=== PATIENT | female | born 1990 | race Caucasian/White ===

== ENCOUNTER 2016-07-23 18:20 | Emergency (ER) | payer OTHER ==
--- NOTE | 2016-07-23 19:41 | DIAGNOSTIC IMAGING REPORT ---
PROCEDURE: US ABDOMEN ULTRASOUND-LIMITED INDICATION: RUQ PAIN TECHNIQUE: Alfred scale and color Doppler sonographic images of the abdomen were obtained. COMPARISON: None. FINDINGS: 1.5 cm mobile gallstone. There is no gallbladder wall thickening or pericholecystic fluid. Normal CBD, 4 mm. Negative Zamudio's sign. Liver measures at 18.6 cm with increased echogenicity. Pancreas normal as visualized. Aorta and IVC are patent. Normal hepatopetal flow. Right kidney measures 10 cm. IMPRESSION: 1. Cholelithiasis. 2. Hepatic steatosis versus intrinsic liver disease.
--- NOTE | 2016-07-23 20:23 | ED ORDER SUMMARY ---
..... Patient: KAREN JOHNSON OrderSheet [facility] VisitID: [id number] [address] [place] [address] 26y, F Registration Date/Time: 07/23/2016 ORDER SHEET Weight: 100.6 kg (stated) Allergies: None GENERAL ORDERS: US Abdomen Limited (No) Urgent (18:51 07/23/2016 EKoroleva P.A.-C) (Ack 18:52 NHouse ER Tech1) (20:34 MCampbell) CBC w Diff Urgent (18:51 07/23/2016 EKoroleva P.A.-C) (Ack 18:52 NHouse ER Tech1) (23:22 KPage-Kuchan R.N.) CMP Urgent (18:51 07/23/2016 EKoroleva P.A.-C) (Ack 18:52 NHouse ER Tech1) (23:22 KPage-Kuchan R.N.) UA-Culture if indicated Urgent (18:51 07/23/2016 EKoroleva P.A.-C) (Ack 18:52 NHouse ER Tech1) (23:22 KPage-Kuchan R.N.) Lipase Urgent (18:51 07/23/2016 EKoroleva P.A.-C) (Ack 18:52 NHouse ER Tech1) (23:22 KPage-Kuchan R.N.) Urine Urgent (18:51 07/23/2016 EKoroleva P.A.-C) (Ack 18:52 NHouse ER Tech1) (23:22 KPage-Kuchan R.N.) UA-Culture if indicated Urgent (19:50 07/23/2016 EKoroleva P.A.-C) (Ack 19:51 AMcQuoid ER Tech1) (23:22 KPage-Kuchan R.N.) MEDICATION ORDERS: IV FLUIDS: ORDER SHEET NOTES: [Electronically signed by Magalys LuongAOksana-Cinthia (21:12 07/23/2016)] [Electronically signed by Elvia Arzola ROksanaNOksana (23:22 07/23/2016)] [Electronically locked/signed by Elvia Arzola R.N. (23:22 07/23/2016)]
--- NOTE | 2016-07-23 20:23 | ED NURSING NOTES ---
Clinical Report - Nurses [facility] [address] [place] [address] 07/23/2016 18:22 Patient: KAREN JOHNSON TRIAGE Triage time 18:42 Jul 23 2016. Chief Complaint: ABDOMINAL PAIN and (pt reports having abd mid epigastric and back pain , was at Prov 2 weeks ago for same, didn't get past the waiting room and lwbs due to wait time. friday pt reports pain came back). Alert. No acute distress. SEPSIS SCREEN: Sepsis Screen. Negative (no infection suspected/documented). --18:50 Elvia Arzola R.N. 18:42 07/23/16. BP: 124/65 taken on the left arm, while lying. HR: 61. RR: 17. O2 saturation: 100%. Temp: 98.2 F. Pain level now: 10/10. --18:50 Elvia Arzola R.N. Weight: 100.6 kg stated. Height/Length: 65 inches Per Patient. BMI: 37. --18:45 Elvia Arzola R.N. Medications None. --18:44 Elvia Arzola R.N. Medication/allergy information source: the patient. --18:50 Elvia Arzola R.N. Allergies None. --18:44 Elvia Arzola R.N. History Arrived by private vehicle. Historian: patient. Accompanied by friend. The patient has had nausea and vomiting. 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 PAST MEDICAL HX: Immunizations: up-to-date. Last normal menstrual period- on period now. SOCIAL HX: Heavy tobacco smoker (cigarette)- 1 pack per day. No alcohol use or drug use. No infectious disease exposure. No known contact with a sick individual. ABUSE ASSESSMENT: No report of abuse. SELF HARM ASSESSMENT: A self harm assessment was performed. The patient answered "no" to the question "Do you have thoughts of harming or killing yourself?". FALL RISK ASSESSMENT: Fall risk assessment completed. No fall risk identified. NUTRITIONAL RISK ASSESSMENT: The nutritional risk assessment revealed no deficiencies. FUNCTIONAL ASSESSMENT: Functional assessment: no impairments noted. LEARNING NEEDS ASSESSMENT: The learning needs assessment revealed no barriers. SKIN INTEGRITY ASSESSMENT: Skin integrity risk assessment completed. No skin integrity risk identified. --18:50 Elvia Arzola R.N. PROBLEMS: no known problems. ADDITIONAL SURGERIES: no known surgeries. Interventions ID band on patient. --18:50 Elvia Arzola R.N. PHYSICAL ASSESSMENT Ambulatory to room. Patient gowned. GENERAL / NEURO / PSYCH: Alert. Oriented X 4. Appears in no acute distress. HEENT: Mucous membranes are pink. RESPIRATORY: Respirations not labored. Breath sounds within normal limits. CVS: Capillary refill less than 2 seconds. GI / : Abdomen soft. SKIN: Skin is warm and dry. --18:50 Elvia Arzola R.N. NURSING PROGRESS NOTES Monitoring of patient in place. Patient gowned. Head of bed elevated. Reassurance given. Patient identifiers checked. Call light placed in reach. Side rails up x 1. Bed placed in lowest position. Brakes of bed on. --18:50 Elvia Arzola R.N. Checked patient name and birthdate. Blood samples drawn from the right forearm with Vacutainer 22g by nurse per protocol ; labeled in presence of the patient and sent to lab: rainbow set. Checked patient name and birthdate: patient confirmed. Instructions provided to collect clean catch urine and patient verbalized understanding. Clean catch urine collected; sample sent to lab for urinalysis. Specimen labeled in the presence of the patient. --19:03 Elvia Arzola R.N. In/out catheterization. During procedure hand hygiene observed and sterile equipment and aseptic technique used. Return of yellow-colored clear urine. She tolerated procedure well. Urine collected. --19:21 Elvia Arzloa R.N. ( US at bedside). --19:23 Elvai Arzola R.N. DISPOSITION / DISCHARGE No learning barriers present. Discharge instructions provided and reviewed with the patient. Reviewed medication(s) side effects and course information. Prescription(s) given to the patient. Patient verbalized understanding. Written instructions provided in Kazakh. The patient was discharged by the nurse practitioner. She was discharged home and accompanied by nitroglycerin nitrator operator batch. She left the Emergency Department ambulatory and via private vehicle. --20:39 Elvia Arzola R.N. 20:37 07/23/16. BP: 119/64. HR: 66. RR: 15. O2 saturation: 100%. Temp: deferred. Pain level now: 08/10. --20:39 Elvia Arzola R.N. Locked/Released at 07/23/2016 23:22 by Elvia Arzola R.N.
--- NOTE | 2016-07-23 20:23 | ED CLINICAL REPORT ---
Clinical Report - Physicians/Mid Levels [facility] [address] [place] [address] 07/23/2016 18:22 Patient: KAREN JOHNSON Time Seen: 19:00 Jul 23 2016. Arrived- By private vehicle. Historian- patient. HISTORY OF PRESENT ILLNESS Chief Complaint: ABDOMINAL PAIN. It is described as "pain" and it is described as located in the upper abdomen. 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 The patient has had nausea. No vomiting or diarrhea. (Patient with abdominal pain over the last 2 weeks. Patient with no diarrhea. Abdominal pain worsens with fatty foods. Denies history of similar. Patient currently on her menses. Patient denies any shortness of breath. Denies any cough.). REVIEW OF SYSTEMS No constipation, hematemesis, difficulty with urination, pain with urination or urinary frequency. No headache or chest pain. All systems otherwise negative, except as recorded above. SOCIAL HISTORY Smoker- current status unknown. No alcohol use or drug use. ADDITIONAL NOTES The nursing notes have been reviewed. PHYSICAL EXAM Vital Signs: 07/23/2016 18:42 BP: 124/65. HR: 61. RR: 17. O2 saturation: 100%. Temp: 98.2 F. Pain level now: 8/10. Appearance: Alert. ENT: Nose normal. Neck: Normal inspection. CVS: Normal heart rate and rhythm. Heart sounds normal. Respiratory: No respiratory distress. Breath sounds normal. No decreased air movement. Abdomen: Nontender. Mild tenderness in the epigastric area. Back: Normal inspection. No CVA tenderness. Skin: Skin warm. Neuro: Oriented X 3. LABS, X-RAYS, AND EKG Laboratory Tests: UA-Culture if indicated: (TIAGO: 07/23/2016 19:13) ( MsgRcvd 07/23/2016 20:06) IP Test Result Flag Units (Reference) URINE COLOR YELLOW URINE APPEARANCE CLEAR URINE GLUCOSE NEGATIVE (NEGATIVE) URINE BILIRUBIN NEGATIVE (NEGATIVE) URINE KETONE NEGATIVE (NEGATIVE) URINE SPECIFIC GRAVITY 1.020 (1.010-1.030) URINE PH 7.5 (5.0-8.0) URINE PROTEIN NEGATIVE (NEGATIVE) URINE UROBILINOGEN 0.2 EU/dL (0.2-1.0) URINE NITRITE NEGATIVE (NEGATIVE) URINE BLOOD 2+ (NEGATIVE) URINE LEUK ESTERASE NEGATIVE (NEGATIVE) UA-Culture if indicated: (TIAGO: 07/23/2016 18:50) ( [facility] 07/23/2016 20:00) Final results Test Result Flag Units (Reference) URINE COLOR RED URINE APPEARANCE SL CLOUDY URINE GLUCOSE NEGATIVE (NEGATIVE) URINE BILIRUBIN NEGATIVE (NEGATIVE) URINE KETONE NEGATIVE (NEGATIVE) URINE SPECIFIC GRAVITY 1.020 (1.010-1.030) URINE PH 7.0 (5.0-8.0) URINE PROTEIN NEGATIVE (NEGATIVE) URINE UROBILINOGEN 0.2 EU/dL (0.2-1.0) URINE NITRITE NEGATIVE (NEGATIVE) URINE BLOOD 3+ (NEGATIVE) URINE LEUK ESTERASE NEGATIVE (NEGATIVE) URINE RBC >100 (TNTC) rbc/hpf (0-1) URINE WBC 1-3 wbc/hpf (0-1) URINE EPITHELIAL CELLS 0-1 EPI/hpf (0-5) URINE BACTERIA TRACE (<1+) (NONE SEEN) URINE COMMENT CULT NOT INDICATED URINE CULTURES ARE SET-UP BASED ON THE FOLLOWING CRITERIA:POSITIVE NITRITEPOSITIVE LEUKOCYTE ESTERASEGREATER THAN 10 WHITE BLOOD CELLSMODERATE (2+) OR GREATER BACTERIA Urine: (TIAGO: 07/23/2016 18:50) ( [facility] 07/23/2016 19:41) Final results Test Result Flag Units (Reference) URINE NEGATIVE CBC w Diff: (TIAGO: 07/23/2016 18:50) ( [facility] 07/23/2016 19:31) Final results Test Result Flag Units (Reference) WHITE BLOOD COUNT 12.3 H K/uL (4.5-11.5) RED BLOOD COUNT 5.34 H M/uL (4.00-5.20) HEMOGLOBIN 12.8 gm/dL (12.0-16.0) HEMATOCRIT 39.5 % (36.0-46.0) MEAN CELL VOLUME 74 L fL (80-100) MEAN CORPUSCULAR HGB 24 L pg (26-34) MEAN CORPUSCULAR HGB CONC 32 g/dL (31-37) RED CELL DISTRIBUTION WIDTH 15.2 H % (11.6-14.8) PLATELET COUNT 424 H K/uL (150-400) NEUTROPHIL % 66.2 % (50-75) LYMPH % 24.2 L % (25-40) MONO % 5.6 % (3-14) EOSINOPHIL % 3.7 % (0-4) BASOPHIL % 0.3 % (0-2) CMP: (TIAGO: 07/23/2016 18:50) ( MsgRcvd 07/23/2016 19:45) Final results Test Result Flag Units (Reference) GLUCOSE 108 mg/dL (70-110) BUN 10 mg/dL (7-18) CREATININE 0.8 mg/dL (0.6-1.3) Estimated GFR >60 mL/min Estimated GFR- >60 mL/min Note: Persistent reduction over 3 months in eGFR<60 mL/min/1.73 m2 defines CKD. Patients with eGFR values>=60 mL/min/1.73 m2 may also have CKD if evidence ofpersistent proteinuria. Additional information may be foundat www.kidney.org. SODIUM 139 mmol/L (136-145) POTASSIUM 3.4 L mmol/L (3.5-5.1) CHLORIDE 104 mmol/L (98-107) CARBON DIOXIDE 28 mmol/L (21-32) CALCIUM 8.6 mg/dL (8.5-10.1) TOTAL PROTEIN 8.3 H g/dL (6.4-8.2) ALBUMIN 3.5 g/dL (3.3-5.0) BILIRUBIN, TOTAL 0.2 mg/dL (0.0-1.0) ALKALINE PHOSPHATASE 73 U/L (46-116) AST (SGOT) 33 U/L (15-37) ALT (SGPT) 56 U/L (12-78) LIPASE 195 U/L (73-393) . Note - Tests: (us abd: IMPRESSION: 1. Cholelithiasis. 2. Hepatic steatosis versus intrinsic liver disease. Electronically Final signed by:Alexis Pearson MD 07/23/2016 7:41:32 PM). PROGRESS AND PROCEDURES Course of Care: During the time in the ED, the following DDX were considered: acute surgical abdomen, hemodynamic or metabolic instability, dehydration, gastroenteritis-viral, food borne, or bacterial, food intolerance, irritable or inflammatory bowel, infection, sepsis. Patient was times of cholelithiasis, with no signs of acute cholecystitis. Stable. Does not warrant any acute immediate intervention. Patient informed to stay away from fatty foods and fried foods, 12 with surgeon as needed. 07/23/2016 20:37 BP: 119/64. HR: 66. RR: 15. O2 saturation: 100%. Pain level now: 610. Patient is stable. Symptoms better. Patient/family counseled. Disposition: Discharged. Condition: good. CLINICAL IMPRESSION Biliary colic with a single gallstone. No cholecystitis. INSTRUCTIONS Drink plenty of fluids. Avoid alcohol. Avoid fatty and fried/greasy foods. Warnings: Further evaluation is necessary. Prescription Medications: Hydrocodone/APAP 5mg / 325mg: take 1 orally every 6 hours as needed for pain. Dispense twelve (12). No refill. Zofran (orally disintegrating tablets) 4 mg: take 1 orally every 6 hours for 4 days as needed for nausea and vomiting. Dispense ten (10). No refill. Substitution is permissible. Understanding of the discharge instructions verbalized. Follow-up with: Jaime eKith MD, General Surgeon, , [facility], [address] [place] [address] Follow up. Call for the next available appointment. (Electronically signed by Magalys Luong P.A.-C 07/23/2016 21:12)
--- NOTE | 2016-07-23 20:23 | ED CLINICAL REPORT ---
Clinical Report - Physicians/Mid Levels [facility] [address] [place] [address] 07/23/2016 18:22 Patient: KAREN JOHNSON Time Seen: 19:00 Jul 23 2016. Arrived- By private vehicle. Historian- patient. HISTORY OF PRESENT ILLNESS Chief Complaint: ABDOMINAL PAIN. It is described as "pain" and it is described as located in the upper abdomen. 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 The patient has had nausea. No vomiting or diarrhea. (Patient with abdominal pain over the last 2 weeks. Patient with no diarrhea. Abdominal pain worsens with fatty foods. Denies history of similar. Patient currently on her menses. Patient denies any shortness of breath. Denies any cough.). REVIEW OF SYSTEMS No constipation, hematemesis, difficulty with urination, pain with urination or urinary frequency. No headache or chest pain. All systems otherwise negative, except as recorded above. SOCIAL HISTORY Smoker- current status unknown. No alcohol use or drug use. ADDITIONAL NOTES The nursing notes have been reviewed. PHYSICAL EXAM Vital Signs: 07/23/2016 18:42 BP: 124/65. HR: 61. RR: 17. O2 saturation: 100%. Temp: 98.2 F. Pain level now: 8/10. Appearance: Alert. ENT: Nose normal. Neck: Normal inspection. CVS: Normal heart rate and rhythm. Heart sounds normal. Respiratory: No respiratory distress. Breath sounds normal. No decreased air movement. Abdomen: Nontender. Mild tenderness in the epigastric area. Back: Normal inspection. No CVA tenderness. Skin: Skin warm. Neuro: Oriented X 3. LABS, X-RAYS, AND EKG Laboratory Tests: UA-Culture if indicated: (TIAGO: 07/23/2016 19:13) ( MsgRcvd 07/23/2016 20:06) IP Test Result Flag Units (Reference) URINE COLOR YELLOW URINE APPEARANCE CLEAR URINE GLUCOSE NEGATIVE (NEGATIVE) URINE BILIRUBIN NEGATIVE (NEGATIVE) URINE KETONE NEGATIVE (NEGATIVE) URINE SPECIFIC GRAVITY 1.020 (1.010-1.030) URINE PH 7.5 (5.0-8.0) URINE PROTEIN NEGATIVE (NEGATIVE) URINE UROBILINOGEN 0.2 EU/dL (0.2-1.0) URINE NITRITE NEGATIVE (NEGATIVE) URINE BLOOD 2+ (NEGATIVE) URINE LEUK ESTERASE NEGATIVE (NEGATIVE) UA-Culture if indicated: (TIAGO: 07/23/2016 18:50) ( [facility] 07/23/2016 20:00) Final results Test Result Flag Units (Reference) URINE COLOR RED URINE APPEARANCE SL CLOUDY URINE GLUCOSE NEGATIVE (NEGATIVE) URINE BILIRUBIN NEGATIVE (NEGATIVE) URINE KETONE NEGATIVE (NEGATIVE) URINE SPECIFIC GRAVITY 1.020 (1.010-1.030) URINE PH 7.0 (5.0-8.0) URINE PROTEIN NEGATIVE (NEGATIVE) URINE UROBILINOGEN 0.2 EU/dL (0.2-1.0) URINE NITRITE NEGATIVE (NEGATIVE) URINE BLOOD 3+ (NEGATIVE) URINE LEUK ESTERASE NEGATIVE (NEGATIVE) URINE RBC >100 (TNTC) rbc/hpf (0-1) URINE WBC 1-3 wbc/hpf (0-1) URINE EPITHELIAL CELLS 0-1 EPI/hpf (0-5) URINE BACTERIA TRACE (<1+) (NONE SEEN) URINE COMMENT CULT NOT INDICATED URINE CULTURES ARE SET-UP BASED ON THE FOLLOWING CRITERIA:POSITIVE NITRITEPOSITIVE LEUKOCYTE ESTERASEGREATER THAN 10 WHITE BLOOD CELLSMODERATE (2+) OR GREATER BACTERIA Urine: (TIAGO: 07/23/2016 18:50) ( [facility] 07/23/2016 19:41) Final results Test Result Flag Units (Reference) URINE NEGATIVE CBC w Diff: (TIAGO: 07/23/2016 18:50) ( [facility] 07/23/2016 19:31) Final results Test Result Flag Units (Reference) WHITE BLOOD COUNT 12.3 H K/uL (4.5-11.5) RED BLOOD COUNT 5.34 H M/uL (4.00-5.20) HEMOGLOBIN 12.8 gm/dL (12.0-16.0) HEMATOCRIT 39.5 % (36.0-46.0) MEAN CELL VOLUME 74 L fL (80-100) MEAN CORPUSCULAR HGB 24 L pg (26-34) MEAN CORPUSCULAR HGB CONC 32 g/dL (31-37) RED CELL DISTRIBUTION WIDTH 15.2 H % (11.6-14.8) PLATELET COUNT 424 H K/uL (150-400) NEUTROPHIL % 66.2 % (50-75) LYMPH % 24.2 L % (25-40) MONO % 5.6 % (3-14) EOSINOPHIL % 3.7 % (0-4) BASOPHIL % 0.3 % (0-2) CMP: (TIAGO: 07/23/2016 18:50) ( MsgRcvd 07/23/2016 19:45) Final results Test Result Flag Units (Reference) GLUCOSE 108 mg/dL (70-110) BUN 10 mg/dL (7-18) CREATININE 0.8 mg/dL (0.6-1.3) Estimated GFR >60 mL/min Estimated GFR- >60 mL/min Note: Persistent reduction over 3 months in eGFR<60 mL/min/1.73 m2 defines CKD. Patients with eGFR values>=60 mL/min/1.73 m2 may also have CKD if evidence ofpersistent proteinuria. Additional information may be foundat www.kidney.org. SODIUM 139 mmol/L (136-145) POTASSIUM 3.4 L mmol/L (3.5-5.1) CHLORIDE 104 mmol/L (98-107) CARBON DIOXIDE 28 mmol/L (21-32) CALCIUM 8.6 mg/dL (8.5-10.1) TOTAL PROTEIN 8.3 H g/dL (6.4-8.2) ALBUMIN 3.5 g/dL (3.3-5.0) BILIRUBIN, TOTAL 0.2 mg/dL (0.0-1.0) ALKALINE PHOSPHATASE 73 U/L (46-116) AST (SGOT) 33 U/L (15-37) ALT (SGPT) 56 U/L (12-78) LIPASE 195 U/L (73-393) . Note - Tests: (us abd: IMPRESSION: 1. Cholelithiasis. 2. Hepatic steatosis versus intrinsic liver disease. Electronically Final signed by:Alexis Pearson MD 07/23/2016 7:41:32 PM). PROGRESS AND PROCEDURES Course of Care: During the time in the ED, the following DDX were considered: acute surgical abdomen, hemodynamic or metabolic instability, dehydration, gastroenteritis-viral, food borne, or bacterial, food intolerance, irritable or inflammatory bowel, infection, sepsis. Patient was times of cholelithiasis, with no signs of acute cholecystitis. Stable. Does not warrant any acute immediate intervention. Patient informed to stay away from fatty foods and fried foods, 12 with surgeon as needed. 07/23/2016 20:37 BP: 119/64. HR: 66. RR: 15. O2 saturation: 100%. Pain level now: 610. Patient is stable. Symptoms better. Patient/family counseled. Disposition: Discharged. Condition: good. CLINICAL IMPRESSION Biliary colic with a single gallstone. No cholecystitis. INSTRUCTIONS Drink plenty of fluids. Avoid alcohol. Avoid fatty and fried/greasy foods. Warnings: Further evaluation is necessary. Prescription Medications: Hydrocodone/APAP 5mg / 325mg: take 1 orally every 6 hours as needed for pain. Dispense twelve (12). No refill. Zofran (orally disintegrating tablets) 4 mg: take 1 orally every 6 hours for 4 days as needed for nausea and vomiting. Dispense ten (10). No refill. Substitution is permissible. Understanding of the discharge instructions verbalized. Follow-up with: Jaime Keith MD, General Surgeon, , [facility], [address] [place] [address] Follow up. Call for the next available appointment. (Electronically signed by Magalys Luong P.A.-C 07/23/2016 21:12)
--- NOTE | 2016-07-23 20:23 | ED NURSING NOTES ---
Clinical Report - Nurses [facility] [address] [place] [address] 07/23/2016 18:22 Patient: KAREN JOHNSON TRIAGE Triage time 18:42 Jul 23 2016. Chief Complaint: ABDOMINAL PAIN and (pt reports having abd mid epigastric and back pain , was at Prov 2 weeks ago for same, didn't get past the waiting room and lwbs due to wait time. friday pt reports pain came back). Alert. No acute distress. SEPSIS SCREEN: Sepsis Screen. Negative (no infection suspected/documented). --18:50 Elvia Arzola R.N. 18:42 07/23/16. BP: 124/65 taken on the left arm, while lying. HR: 61. RR: 17. O2 saturation: 100%. Temp: 98.2 F. Pain level now: 10/10. --18:50 Elvia Arzola R.N. Weight: 100.6 kg stated. Height/Length: 65 inches Per Patient. BMI: 37. --18:45 Elvia Arzola R.N. Medications None. --18:44 Elvia Arzola R.N. Medication/allergy information source: the patient. --18:50 Elvia Arzola R.N. Allergies None. --18:44 Elvia Arzola R.N. History Arrived by private vehicle. Historian: patient. Accompanied by friend. The patient has had nausea and vomiting. 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 PAST MEDICAL HX: Immunizations: up-to-date. Last normal menstrual period- on period now. SOCIAL HX: Heavy tobacco smoker (cigarette)- 1 pack per day. No alcohol use or drug use. No infectious disease exposure. No known contact with a sick individual. ABUSE ASSESSMENT: No report of abuse. SELF HARM ASSESSMENT: A self harm assessment was performed. The patient answered "no" to the question "Do you have thoughts of harming or killing yourself?". FALL RISK ASSESSMENT: Fall risk assessment completed. No fall risk identified. NUTRITIONAL RISK ASSESSMENT: The nutritional risk assessment revealed no deficiencies. FUNCTIONAL ASSESSMENT: Functional assessment: no impairments noted. LEARNING NEEDS ASSESSMENT: The learning needs assessment revealed no barriers. SKIN INTEGRITY ASSESSMENT: Skin integrity risk assessment completed. No skin integrity risk identified. --18:50 Elvia Arzola R.N. PROBLEMS: no known problems. ADDITIONAL SURGERIES: no known surgeries. Interventions ID band on patient. --18:50 Elvia Arzola R.N. PHYSICAL ASSESSMENT Ambulatory to room. Patient gowned. GENERAL / NEURO / PSYCH: Alert. Oriented X 4. Appears in no acute distress. HEENT: Mucous membranes are pink. RESPIRATORY: Respirations not labored. Breath sounds within normal limits. CVS: Capillary refill less than 2 seconds. GI / : Abdomen soft. SKIN: Skin is warm and dry. --18:50 Elvia Arzola R.N. NURSING PROGRESS NOTES Monitoring of patient in place. Patient gowned. Head of bed elevated. Reassurance given. Patient identifiers checked. Call light placed in reach. Side rails up x 1. Bed placed in lowest position. Brakes of bed on. --18:50 Elvia Arzola R.N. Checked patient name and birthdate. Blood samples drawn from the right forearm with Vacutainer 22g by nurse per protocol ; labeled in presence of the patient and sent to lab: rainbow set. Checked patient name and birthdate: patient confirmed. Instructions provided to collect clean catch urine and patient verbalized understanding. Clean catch urine collected; sample sent to lab for urinalysis. Specimen labeled in the presence of the patient. --19:03 Elvia Arzola R.N. In/out catheterization. During procedure hand hygiene observed and sterile equipment and aseptic technique used. Return of yellow-colored clear urine. She tolerated procedure well. Urine collected. --19:21 Elvia Arzola R.N. ( US at bedside). --19:23 Elvia Arzola R.N. DISPOSITION / DISCHARGE No learning barriers present. Discharge instructions provided and reviewed with the patient. Reviewed medication(s) side effects and course information. Prescription(s) given to the patient. Patient verbalized understanding. Written instructions provided in Divehi. The patient was discharged by the nurse practitioner. She was discharged home and accompanied by alteration tailor apprentice. She left the Emergency Department ambulatory and via private vehicle. --20:39 Elvia Arzola R.N. 20:37 07/23/16. BP: 119/64. HR: 66. RR: 15. O2 saturation: 100%. Temp: deferred. Pain level now: 08/10. --20:39 Elvia Arzola R.N. Locked/Released at 07/23/2016 23:22 by Elvia Arzola R.N.
--- NOTE | 2016-07-23 20:23 | ED ORDER SUMMARY ---
..... Patient: KAREN JOHNSON OrderSheet [facility] VisitID: [id number] [address] [place] [address] 26y, F Registration Date/Time: 07/23/2016 ORDER SHEET Weight: 100.6 kg (stated) Allergies: None GENERAL ORDERS: US Abdomen Limited (No) Urgent (18:51 07/23/2016 EKoroleva P.A.-C) (Ack 18:52 NHouse ER Tech1) (20:34 MCampbell) CBC w Diff Urgent (18:51 07/23/2016 EKoroleva P.A.-C) (Ack 18:52 NHouse ER Tech1) (23:22 KPage-Kuchan R.N.) CMP Urgent (18:51 07/23/2016 EKoroleva P.A.-C) (Ack 18:52 NHouse ER Tech1) (23:22 KPage-Kuchan R.N.) UA-Culture if indicated Urgent (18:51 07/23/2016 EKoroleva P.A.-C) (Ack 18:52 NHouse ER Tech1) (23:22 KPage-Kuchan R.N.) Lipase Urgent (18:51 07/23/2016 EKoroleva P.A.-C) (Ack 18:52 NHouse ER Tech1) (23:22 KPage-Kuchan R.N.) Urine Urgent (18:51 07/23/2016 EKoroleva P.A.-C) (Ack 18:52 NHouse ER Tech1) (23:22 KPage-Kuchan R.N.) UA-Culture if indicated Urgent (19:50 07/23/2016 EKoroleva P.A.-C) (Ack 19:51 AMcQuoid ER Tech1) (23:22 KPage-Kuchan R.N.) MEDICATION ORDERS: IV FLUIDS: ORDER SHEET NOTES: [Electronically signed by Magalys LuongAOksana-Cinthia (21:12 07/23/2016)] [Electronically signed by Elvia Arzola ROksanaNOksana (23:22 07/23/2016)] [Electronically locked/signed by Elvia Arzola R.N. (23:22 07/23/2016)]
--- NOTE | 2016-07-23 23:22 | ED MAR SUMMARY ---
..... Medication Administration Record [facility] [address] [place], [place] [id number] Patient: KAREN JOHNSON Visit ID: [id number] 26y, F Weight: 100.6 kg Height/Length: 65 in BMI: 37 ALLERGIES: None
--- NOTE | 2016-07-23 23:22 | ED MED RECONCILIATION SUMMARY ---
Patient: KAREN JOHNSON Medication Reconciliation Report [facility] VisitID: [id number] [address] [place] [address] 26y, F Registration Date/Time: 07/23/2016 Weight: 100.6 kg Height/Length: 65 in. BMI: 37.0 ALLERGIES: None The patient's Home Medications are listed below: NONE. The source(s) of the original Home Medication information: patient The following Medications were given to the patient in the Emergency Department: None. The following Medications were prescribed to the patient: Hydrocodone/APAP 5mg / 325mg: take 1 orally every 6 hours as needed for pain. Dispense twelve (12). No refill. -- Magalys Luong, P.A.Nasim Zofran (orally disintegrating tablets) 4 mg: take 1 orally every 6 hours for 4 days as needed for nausea and vomiting. Dispense ten (10). No refill. Substitution is permissible. -- Magalys Luong P.AKrista
--- NOTE | 2016-07-23 23:22 | ED MED RECONCILIATION SUMMARY ---
Patient: KAREN JOHNSON Medication Reconciliation Report [facility] VisitID: [id number] [address] [place] [address] 26y, F Registration Date/Time: 07/23/2016 Weight: 100.6 kg Height/Length: 65 in. BMI: 37.0 ALLERGIES: None The patient's Home Medications are listed below: NONE. The source(s) of the original Home Medication information: patient The following Medications were given to the patient in the Emergency Department: None. The following Medications were prescribed to the patient: Hydrocodone/APAP 5mg / 325mg: take 1 orally every 6 hours as needed for pain. Dispense twelve (12). No refill. -- Magalys Luong, P.A.Nasim Zofran (orally disintegrating tablets) 4 mg: take 1 orally every 6 hours for 4 days as needed for nausea and vomiting. Dispense ten (10). No refill. Substitution is permissible. -- Magalys Luong P.AKrista
--- NOTE | 2016-07-23 23:22 | ED DISCHARGE INSTRUCTIONS ---
Patient: KAREN JOHNSON General Instructions [facility] VisitID: [id number] [address] [place], [place] [id number] 26y, F Registration Date/Time: 07/23/2016 Biliary colic with a single gallstone. No cholecystitis. INSTRUCTIONS Drink plenty of fluids. Avoid alcohol. Avoid fatty and fried/greasy foods. Warnings: Further evaluation is necessary. Prescription Medications: Hydrocodone/APAP 5mg / 325mg: take 1 orally every 6 hours as needed for pain. Dispense twelve (12). No refill. Zofran (orally disintegrating tablets) 4 mg: take 1 orally every 6 hours for 4 days as needed for nausea and vomiting. Dispense ten (10). No refill. Substitution is permissible. Understanding of the discharge instructions verbalized. Follow-up with: Jaime Keith MD, General Surgeon, , [facility], [address] [place] [address] Follow up. Call for the next available appointment. ADDITIONAL INFORMATION GallstonesWith Biliary Colic [Confirmed Dx] The abdominal pain that you have today is due to spasm of the gallbladder. The gallbladder is a small sac under the liver which stores and releases bile. Bile is a fluid that aids in the digestion of fat. A gallstone may form inside the gallbladder and block the flow of bile fluid. This causes mild to severe crampy pain in the mid or right upper abdomen with nausea and vomiting. Home Care: Rest in bed and follow a clear liquid diet until feeling better. If pain or nausea medicine was given to help with your symptoms, take these as directed. Fat in your diet makes the gallbladder contract and may cause increased pain. Therefore, avoid fat in your diet over the next two days and follow a low-fat diet after that. If you are overweight, a low-fat diet will also help you lose weight. Follow Up with your doctor. There is a 50% chance that you will have another episode of pain from your gallstones during the next 2 years. Removal of the gallbladder is the treatment of choice to prevent this. Schedule an appointment with your own doctor during the next week to discuss the treatment options. Get Prompt Medical Attention if any of the following occur: Pain gets worse or moves to the right lower abdomen Repeated vomiting Swelling of the abdomen Pain lasts over 6 hours Fever of 100.4F (38C) or higher, or as directed by your healthcare provider Weakness, dizziness or fainting Dark urine or light colored stools Yellow color of the skin or eyes Chest, arm, back, neck or jaw pain [place] Diet A bland diet is used for patients with an upset stomach. It consists of foods that are mild and easy to digest. It is better to eat small frequent meals rather than three large meals a day. BEVERAGES OK: Fruit juices, non-caffeinated teas and coffee, non-carbonated tomas AVOID: Carbonated beverage, caffeinated tea and coffee, all alcoholic beverages BREAD OK: Refined white, wheat or rye bread, eun or soda crackers, Carlyn toast, plain rolls, bagels AVOID: Whole-grain bread CEREAL OK: Refined cereals: cooked or ready to eat AVOID: Whole grain cereals and granola, or those containing bran, seeds or nuts DESSERTS OK: Peanut butter and all others except those to "avoid" AVOID: Chocolate, cocoa, coconut, popcorn, nuts, seeds, jam, marmalade FRUITS OK: Canned, cooked, frozen or fresh fruits without seeds or tough skin AVOID: Olives, skin and seeds of fruit MEATS OK: All fresh or preserved meat, fish and fowl AVOID: Any that are prepared with those spices to "avoid" CHEESE & EGGS OK: Eggs, cottage cheese, cream cheese, other cheeses AVOID: All cheeses made with those spices to "avoid" POTATOES & PASTA OK: Potato, rice, macaroni, noodles, spaghetti AVOID: None SOUPS OK: All soups without heavy seasoning AVOID: Soups made with those spices to "avoid" VEGETABLES OK: Canned, cooked, fresh or frozen mildly flavored vegetables without seeds, skins or coarse fiber AVOID: Vegetables prepared with those spices to "avoid"; skin and seeds of vegetables and those with coarse fiber SPICES OK: Salt, lemon and [place] shosh[place] juice, vinegar, all extracts, braeden, cinnamon, thyme, mace, allspice, paprika AVOID: Lynn powder, cloves, pepper, seed spices, garlic, gravy pickles, highly seasoned salad dressings Clear Liquid Diet Clear liquids are any liquid that you can see through as well as those that are very easy to digest. This is used while the body is recovering from irritation or infection of the stomach or intestinal tract. It may also be used before special procedures or surgery. This diet is to be used no more than three days. You may include the following items. Adults Adults should drink a total of 23 quarts of liquid per day. It may be easier to drink small frequent servings rather than a few large ones. Liquids can include: Fruit juices.Strained orange juice or lemonade (no pulp), apple, grape and cranberry juice, clear fruit drinks, sports drinks Beverages.Sport drinks, sodas, mineral water (plain or flavored), tea, black coffee, liquid gelatin (add twice the recommended amount of water) Soups.Clear broth, consomm, bouillon Desserts.Plain gelatin, popsicles, fruit juice bars Children Over 2 years old The following liquids are acceptable for children over age 2: Fruit juices.Strained orange juice or lemonade (no pulp), apple, grape and cranberry juice, clear fruit drinks Beverages. Sports drinks, sodas, mineral water (plain or flavored), tea, liquid gelatin (add twice the recommended amount of water) Soups. Clear broth, consomm, bouillon Desserts. Plain gelatin, popsicles, fruit juice bars Children under 2 years old Oral rehydration fluids such are available at drug stores and most grocery stores without a prescription. High Fiber Diet Fiber is present in all fruits, vegetables, cereals and grains. Fiber passes through the body undigested. A high fiber diet helps food move through the intestinal tract. The added bulk is helpful in preventing constipation. In people with diverticulosis it serves to clean out the pouches along the colon wall while preventing new ones from forming. A high fiber diet also reduces the risk of colon cancer, decreases blood cholesterol and prevents high blood sugar in people with diabetes. The foods listed below are high in fiber and should be included in your diet. If you are not used to high fiber foods, start with 1 or 2 foods from this list. Every 3-4 days add a new one to your diet until you are eating 4 high fiber foods per day. This should give you 20-35 Gm of fiber/day. It is also important to drink a lot of water when you are on this diet (6-8 glasses a day). Water causes the fiber to swell and increases the benefit. Foods High In Dietary Fiber: BREADS: Made with 100% whole wheat flour; eun, wheat or rye crackers; tortillas, bran muffins CEREALS: Whole grain cereal with bran (Chex, Raisin Bran, Durham Bran), oatmeal, rolled oats, granola, wheat flakes, brown rice NUTS: Any nuts FRUITS: All fresh fruits along with edible skins, (bananas, citrus fruit, mangoes, pears, prunes, raisins, apples, pineapple, apricot, melon, jams and marmalades), fruit juices (especially prune juice) VEGETABLES: All types, preferably raw or lightly cooked: especially, celery, eggplant, potatoes,spinach, broccoli, brussel sprouts, winter squash, carrots, cauliflower, soybeans, lentils, fresh and dried beans of all kinds OTHER: Popcorn, any spices Hydrocodone Bitartrate, Acetaminophen Oral tablet What is this medicine? ACETAMINOPHEN; HYDROCODONE (a set a DONNA marjan fen; ubaldo droe KOE done) is a pain reliever. It is used to treat mild to moderate pain. How should I use this medicine? Take this medicine by mouth. Swallow it with a full glass of water. Follow the directions on the prescription label. If the medicine upsets your stomach, take the medicine with food or milk. Do not take more than you are told to take. Talk to your dean of student services regarding the use of this medicine in children. This medicine is not approved for use in children. What side effects may I notice from receiving this medicine? Side effects that you should report to your doctor or health primary care sales representative as soon as possible: allergic reactions like skin rash, itching or hives, swelling of the face, lips, or tongue breathing problems confusion feeling faint or lightheaded, falls stomach pain yellowing of the eyes or skin Side effects that usually do not require medical attention (report to your doctor or health primary care sales representative if they continue or are bothersome): nausea, vomiting stomach upset What may interact with this medicine? alcohol antihistamines isoniazid medicines for depression, anxiety, or psychotic disturbances medicines for sleep muscle relaxants naltrexone narcotic medicines (opiates) for pain phenobarbital ritonavir tramadol What if I miss a dose? If you miss a dose, take it as soon as you can. If it is almost time for your next dose, take only that dose. Do not take double or extra doses. Where should I keep my medicine? Keep out of the reach of children. This medicine can be abused. Keep your medicine in a safe place to protect it from theft. Do not share this medicine with anyone. Selling or giving away this medicine is dangerous and against the law. Store at room temperature between 15 and 30 degrees C (59 and 86 degrees F). Protect from light. Keep container tightly closed. Throw away any unused medicine after the expiration date. Discard unused medicine and used packaging carefully. Pets and children can be harmed if they find used or lost packages. What should I tell my health care provider before I take this medicine? They need to know if you have any of these conditions: brain tumor Crohn's disease, inflammatory bowel disease, or ulcerative colitis drink more than 3 alcohol-containing drinks per day drug abuse or addiction head injury heart or circulation problems kidney disease or problems going to the bathroom liver disease lung disease, asthma, or breathing problems an unusual or allergic reaction to acetaminophen, hydrocodone, other opioid analgesics, other medicines, foods, dyes, or preservatives or trying to get breast-feeding What should I watch for while using this medicine? Tell your doctor or health primary care sales representative if your pain does not go away, if it gets worse, or if you have new or a different type of pain. You may develop tolerance to the medicine. Tolerance means that you will need a higher dose of the medicine for pain relief. Tolerance is normal and is expected if you take the medicine for a long time. Do not suddenly stop taking your medicine because you may develop a severe reaction. Your body becomes used to the medicine. This does NOT mean you are addicted. Addiction is a behavior related to getting and using a drug for a non-medical reason. If you have pain, you have a medical reason to take pain medicine. Your doctor will tell you how much medicine to take. If your doctor wants you to stop the medicine, the dose will be slowly lowered over time to avoid any side effects. You may get drowsy or dizzy when you first start taking the medicine or change doses. Do not drive, use machinery, or do anything that may be dangerous until you know how the medicine affects you. Stand or sit up slowly. There are different types of narcotic medicines (opiates) for pain. If you take more than one type at the same time, you may have more side effects. Give your health care provider a list of all medicines you use. Your doctor will tell you how much medicine to take. Do not take more medicine than directed. Call emergency for help if you have problems breathing. The medicine will cause constipation. Try to have a bowel movement at least every 2 to 3 days. If you do not have a bowel movement for 3 days, call your doctor or health primary care sales representative. Too much acetaminophen can be very dangerous. Do not take Tylenol (acetaminophen) or medicines that contain acetaminophen with this medicine. Many non-prescription medicines contain acetaminophen. Always read the labels carefully. Ondansetron Oral disintegrating tablet What is this medicine? ONDANSETRON (on SHAWNA se jl) is used to treat nausea and vomiting caused by chemotherapy. It is also used to prevent or treat nausea and vomiting after surgery. How should I use this medicine? These tablets are made to dissolve in the mouth. Do not try to push the tablet through the foil backing. With dry hands, peel away the foil backing and gently remove the tablet. Place the tablet in the mouth and allow it to dissolve, then swallow. While you may take these tablets with water, it is not necessary to do so. Talk to your dean of student services regarding the use of this medicine in children. Special care may be needed. What side effects may I notice from receiving this medicine? Side effects that you should report to your doctor or health primary care sales representative as soon as possible: allergic reactions like skin rash, itching or hives, swelling of the face, lips, or tongue breathing problems dizziness fast or irregular heartbeat feeling faint or lightheaded, falls fever and chills swelling of the hands and feet tightness in the chest Side effects that usually do not require medical attention (report to your doctor or health primary care sales representative if they continue or are bothersome): constipation or diarrhea headache What may interact with this medicine? Do not take this medicine with any of the following medications: -apomorphine -cisapride -dofetilide -dronedarone -pimozide -thioridazine -ziprasidone This medicine may also interact with the following medications: -carbamazepine -phenytoin -rifampicin -tramadol -other medicines that prolong the QT interval (cause an abnormal heart rhythm) What if I miss a dose? If you miss a dose, take it as soon as you can. If it is almost time for your next dose, take only that dose. Do not take double or extra doses. Where should I keep my medicine? Keep out of the reach of children. Store between 2 and 30 degrees C (36 and 86 degrees F). Throw away any unused medicine after the expiration date. What should I tell my health care provider before I take this medicine? They need to know if you have any of these conditions: heart disease history of irregular heartbeat liver disease low levels of magnesium or potassium in the blood an unusual or allergic reaction to ondansetron, granisetron, other medicines, foods, dyes, or preservatives or trying to get breast-feeding What should I watch for while using this medicine? Check with your doctor or health primary care sales representative as soon as you can if you have any sign of an allergic reaction. You have been given the following additional information: Biliary Colic With Gallstone (Confirmed) Diet, [place] (Adult) Diet, Clear Liquid Diet, High Fiber Hydrocodone Bitartrate, Acetaminophen Oral tablet Ondansetron Oral disintegrating tablet (Electronically signed by Magalys Luong P.A.-C 07/23/2016 21:12)
--- NOTE | 2016-07-23 23:22 | ED MAR SUMMARY ---
..... Medication Administration Record [facility] [address] [place], [place] [id number] Patient: KAREN JOHNSON Visit ID: [id number] 26y, F Weight: 100.6 kg Height/Length: 65 in BMI: 37 ALLERGIES: None
== END 2016-07-23 20:37 | disposition home or self-care (01) ==
LOC: ED SRH 18:20
DX: K80.70 Calculus of gallbladder and bile duct without cholecystitis without obstruction (principal); F17.210 Nicotine dependence, cigarettes, uncomplicated
CPT/HCPCS: 90004; 90074; 90100; 90469; 92235; 93070; 95059